=== PATIENT | male | born 1960 | race Caucasian/White ===

== ENCOUNTER 2017-12-18 15:00 | Outpatient (RCR) | payer OTHER, SELFPAY ==
--- NOTE | 2017-10-02 17:49 | HP.PTEVAL_ITS ---
Patient's Visit Information RONNIE RICHARDSON is a 57 year old M referred to Physical Therapy by Minor Llanos DO [email or web address] with a diagnosis of R rCR 09/18/17. Date of Evaluation: 10/02/17 Physical Therapist: JESUS MosesT, OC - Visit Plan Frequency: 3x /Week Duration: 3 Months Plan: PROM, may bring to teach her PROM. May start AAROM 10/18and progress per tolerance. ice as needed. Educate management of condition. - Subjective Subjective: R RCR Sep 18. Happened with years of golf and softball. Flared up in last year. Araceli gave cortisone injection which lasted 3 months and came back. Sent to [facility] who repaired it after x ray and MRI. Also had calcification up front. Pain over last two weeks has been 5/10 intermittently worse with typing at desk. In sling and abd wedge day and night unless sitting on couch. On for another month. 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 Sleep is OK now, first couple nights were rough. Dressing self slowly but gets it done. Dons and doffs sling I. Wants to golf again. Enjoys jetskiing on [place]. wants to swim in water. - Pain R shoulder anterior Pain Intensity (Out of 10): 0 Pain Intensity Range: 0, 6 - Objective R sling don and doff I. incisions have healed well, slight scar tissue, dry, minimal tender. c/s aROM WNL. scap AROM 75% limited R vs. L. elbow and wrist AROM WFL B. PROM L shoulder flexion 85, abd 90, ext rot 20, AROM NT. Transfers and walks I. One incident of muscle spasm with lowering from passive flexion gave sharp pain, otherwise tolerated well. - Goals Goal 1:: ST: PROM 150 flexion adn 60 ext rotation without pain. Goal Time Frame: 2-4 Weeks Goal 2:: AROM full and painfree Goal Time Frame: 6-8 Weeks Goal 3:: LT: Back to golf and reaching [place] for items Goal Time Frame: 8-12 Weeks Goal 4:: ST: sleep withotu interruption at night. Goal Time Frame: 4-6 Weeks Goal 5:: Pain 0-1 /10 at all times.(ST Goal Time Frame: 4-6 Weeks - Rehabilitation Potential Physical Therapy Diagnosis: R RCR 09/18/17 Rehabilitation Potential: Good - Anticipated Interventions Patient/Client Instruction: Educate patient on: Condition, Plan of Care For the Purpose of:: To decrease pain Therapeutic Exercise to Include: Passive ROM Comment: AAROM at 4 weeks. strength around 8 weeks and eventual return to function ex. For the Purpose of:: To decrease pain, To increase ROM Manual Therapy Techniques to Include: Passive ROM For the Purpose of:: To decrease pain Thank you for the opportunity to evaluate your patient. For Medicare and Medicare HMO plans, please review the plan of care and approve it. It will need to be FAXED BACK to us at [phone] for Medicare purposes. Please let me know if there are questions or concerns regarding this plan of care. Physician Signature: Date:
--- NOTE | 2017-10-30 16:00 | HP.PTREVAL_ITS ---
Minor Llanos DO, It has been my pleasure to treat RONNIE RICHARDSON over the last 10 visits for R rCR 09/18/17. Please see the progress note below for an update on the physical therapy plan of care! Subjective: Next Friday is doctor visit. Still in sling but more time out of it. Sore after ex slightly. Home [id number] going well. HEP: pendulum, AROM scap and elbow. Walking up the wall a little bit. Sleping OK as long as he remembers to ice. Work going well at his desk. Objective/Function: AROM flex 100. abd 90. ext rot 45. IR PSIS. PROM 130 flexion 110 abd, 60 ext rot. DoING WELL. Plan Plan: weekly to progress HEP x 4-8 weeks Goals Goal 1:: ST: PROM 150 flexion adn 60 ext rotation without pain. Goal Time Frame: 2-4 Weeks Goal 2:: AROM full and painfree Goal Time Frame: 6-8 Weeks Goal 3:: LT: Back to golf and reaching [place] for items Goal Time Frame: 8-12 Weeks Goal 4:: ST: sleep withotu interruption at night. Goal Time Frame: 4-6 Weeks Goal 5:: Pain 0-1 /10 at all times.(ST Goal Time Frame: 4-6 Weeks Anticipated Interventions Patient/Client Instruction: Educate patient on: Condition, Plan of Care For the Purpose of:: To decrease pain Therapeutic Exercise to Include: Passive ROM Comment: AAROM at 4 weeks. strength around 8 weeks and eventual return to function ex. For the Purpose of:: To decrease pain, To increase ROM Manual Therapy Techniques to Include: Passive ROM For the Purpose of:: To decrease pain Please do not hesitate to contact me at [phone] by phone or Fax: if you have questions or concerns regarding this new plan of care! Sincerely, Isidoro Loja, JESUST, OC
--- NOTE | 2017-12-18 15:24 | HP.PTDCSUM_ITS ---
HP - PT D/C Summary It has been my pleasure to treat RONNIE Mendoza DIES under orders from Minor Llanos DO , for the diagnosis of R rCR 09/18/17 for a total of 15 visit(s). Discharge Date: 12/18/17 Please see the following information for a summary of their discharge status. - Subjective Subjective: Stiff in the am. Pain is not an issue. Sleep is good. HEP going well. strengthening is getting easier. Work is normal. Activities at home are normal outside of lifting and golf. - Pain R shoulder anterior Pain Intensity (Out of 10): 0 - Objective Objective/Function: 0-140 aROM flex and abd R, ext rotation is 75 degrees adn IR is to L4. Tightness present in pectorals. Strength is 4+ in flex/abd and 5/ 5 in rotations and extension and bi and tri. No pain. - Goals Goal 1:: ST: PROM 150 flexion adn 60 ext rotation without pain. Goal Progress: Progressing Goal 2:: AROM full and painfree Goal Progress: Progressing Goal 3:: LT: Back to golf and reaching [place] for items Goal Progress: Progressing Goal 4:: ST: sleep withotu interruption at night. Goal Progress: Goal Met Goal 5:: Pain 0-1 /10 at all times.(ST Goal Progress: Goal Met - Plan Plan: D/C to I program. - D/C Information Discharge Comments: To doctor next week. Doing well overall and will continue via I gym strength adn home stretching. If there are questions or concerns regarding this patient's physical therapy, please feel free to call me at [phone]. Thank you for the referral of this patient. Sincerely, Isidoro Loja, DPT, OC
== END 2017-12-18 19:00 | disposition home or self-care (01) ==
LOC: PT 15:00
PROVIDERS: Family Provider Family Medicine; PCP Family Medicine; Visit Provider Orthopaedic Surgery
DX: Z98.890 Other specified postprocedural states (principal)
CPT/HCPCS: 97110; 97140; 97161; 97530

== ENCOUNTER → 2018-09-02 15:03 | Outpatient (CLI) | payer OTHER, SELFPAY ==
[2017-09-18 10:43] VITALS: BMI 27.0
[2018-09-02 15:07] LABS: Bacteria 0 SEEN /hpf (None Seen); Mucous, Urine 0 SEEN /hpf (<or=2+); Red Blood Cells-Urine 0 SEEN /hpf (0-5); Squamous Epithelial Cells - UA 0 SEEN /hpf (0-5); White Blood Cells 0 SEEN /hpf (0-5)
[2018-09-02 17:31] LABS: Color, Urine Yellow (Yellow); Glucose, Dipstick Normal (Normal); Ketone-Dipstick Negative (Negative); Leukocyte Esterase-Dipstick Negative /ul (Negative); Nitrite-Dipstick Negative (Negative); Occult Blood-Urine Negative /ul (Negative); Protein-Dipstick Negative (Negative); Specific Gravity, Urine 1.015 (1.002-1.030); Urine Bilirubin Dipstick Negative (Negative); Urine Clarity Clear (Clear); Urine Urobilinogen Normal (Normal)
[2018-09-02 17:44] LABS: ALB/GLOB Ratio 1.1 RATIO (0.9-2.4); AST(SGOT) 20 U/L (15-37); Alanine Aminotransfer ALT/SGPT 30 U/L (16-61); Albumin, Serum 3.8 g/dL (3.2-5.0); Alkaline Phosphatase 63 U/L (45-117); Anion Gap 9 (5-15); BUN 16 mg/dL (7-18); BUN/Creat Ratio 17.9 RATIO (10-20); Calcium,Total 9.1 mg/dL (8.5-10.1); Chloride 106 mmol/L (98-107); Creatinine, Serum 0.89 mg/dL (0.70-1.30); EST Glomerular Filtration Rate 93 mL/min (>60); Est Glom Filt Rate - Afr Amer 112 mL/min (>60); Globulin 3.5 g/dL (2.2-4.2); Glucose 87 mg/dL (74-106); PSA,Total - Annual Screen 3.72 ng/mL (0.00-4.00); Protein, Total 7.3 g/dL (6.4-8.2); Sodium Level 140 mmol/L (136-145)
== END ==
PROVIDERS: Family Provider Family Medicine; PCP Family Medicine; Visit Provider Family Medicine
DX: Z00.00 Encounter for general adult medical examination without abnormal findings (principal); E78.5 Hyperlipidemia, unspecified; Z12.5 Encounter for screening for malignant neoplasm of prostate
CPT/HCPCS: 36415; 80053; 81001; 84153; G0103

== ENCOUNTER → 2019-08-05 | Outpatient (CLI) | payer OTHER, SELFPAY ==
[2017-09-18 10:43] VITALS: BMI 27.0
--- NOTE | 2019-08-05 16:19 | RAD_ITS ---
STUDY: X-RAY - RIGHT FOOT CLINICAL: Male, 59 years old. Right foot pain. TECHNIQUE: 3 view(s) of the foot. COMPARISON: None. FINDINGS: Minimal enthesophyte at the Achilles tendon insertion site. Otherwise normal talus, calcaneus, and tarsal bones. Normal visualized subtalar, talonavicular, calcaneocuboid, tarsal and tarsometatarsal articulations. Normal metatarsi. There is mild degenerative arthrosis of the metatarsophalangeal joint of the hallux . Normal tibial and fibular sesamoid bones. Normal interphalangeal joint of the great toe. Normal phalanges of the great toe. Normal second through fifth metatarsophalangeal joints. Mild multilevel narrowing of the interphalangeal joints otherwise normal phalanges of the lesser toes. The soft tissue structures are unremarkable. There is no demonstrated fracture. RAD/Foot min 3 Views IMPRESSION: Mild multilevel degenerative disease as described above with no acute fracture or subluxation. Electronically Signed: Brunilda Terry MD at 2:53 EST , Service support ,
== END | disposition home or self-care (01) ==
LOC: MTRAD 16:18
PROVIDERS: Family Provider Family Medicine; PCP Family Medicine; Referring Provider Family Medicine; Visit Provider Family Medicine
DX: M79.671 Pain in right foot (principal)
CPT/HCPCS: 73630

== ENCOUNTER → 2019-09-06 16:19 | Outpatient (CLI) | payer OTHER, SELFPAY ==
[2017-09-18 10:43] VITALS: BMI 27.0
[2019-09-06 18:34] LABS: PSA,Total - Annual Screen 3.42 ng/mL (0.00-4.00)
== END ==
PROVIDERS: Family Provider Family Medicine; PCP Family Medicine; Visit Provider Family Medicine
DX: Z12.5 Encounter for screening for malignant neoplasm of prostate (principal)
CPT/HCPCS: 36415; 84153; G0103

== ENCOUNTER → 2020-02-29 | Outpatient (CLI) | payer OTHER, SELFPAY ==
[2017-09-18 10:43] VITALS: BMI 27.0
[2020-02-29 18:03] LABS: Erythrocyte Sedimentation Rate 5 mm/hr (0-20)
[2020-02-29 18:08] LABS: CRP < 2.90 mg/L (0.0-3.0); Creatinine, Serum 0.84 mg/dL (0.70-1.30); EST Glomerular Filtration Rate 99 mL/min (>60); Est Glom Filt Rate - Afr Amer 120 mL/min (>60)
== END | disposition home or self-care (01) ==
LOC: MTLAB 14:24
PROVIDERS: PCP Family Medicine; Referring Provider Ophthalmology; Visit Provider Ophthalmology
DX: H46.9 Unspecified optic neuritis (principal)
CPT/HCPCS: 36415; 82565; 85652; 86140

== ENCOUNTER → 2020-03-07 | Outpatient (CLI) | payer OTHER, SELFPAY ==
[2017-09-18 10:43] VITALS: BMI 27.0
--- NOTE | 2020-03-07 10:45 | MRI_ITS ---
STUDY: MRI ORBITS WITH AND WITHOUT CONTRAST REASON FOR EXAM: Male, 60 years old. Optic neuritis LEFT eye, vision loss x 4 weeks TECHNIQUE: Standardized fat and water weighted pulse sequences were obtained in all 3 orthogonal planes, pre-and post contrast administration. IV Yes YES was administered for the contrast portion of the examination. COMPARISON: None. FINDINGS: Normal bilateral globes. Normal bilateral optic nerve sheath complexes and optic nerves. Normal bilateral intraconal and extraconal spaces. Normal bilateral extraocular muscles. Normal optic chiasm and post-chiasmatic tracts. Normal sella turcica, pituitary gland, infundibular stalk, and hypothalamus. Normal bilateral cavernous sinuses. Normal tectal plate and pineal gland. Normal flow voids within the major intracranial circulation suggesting patency by spin echo criteria. Normal size of the ventricles and extra-axial spaces for the patient''s age. There are a limited number of small white matter hyperintensities, distributed throughout the deep white matter tracts of the cerebral hemispheres, nonspecific but most commonly seen with with mild chronic white matter ischemic changes. Normal bilateral basal ganglia. Normal thalami. There is no extra-axial fluid accumulation. Normal midbrain, kai and medulla. Normal cerebellum. Normal basal cisterns. MRI/Brain W/WO Contrast IMPRESSION: Unremarkable orbits. Electronically Signed: Janell Choudhary MD at 12:15 EDT Tel , Service support ,
== END | disposition home or self-care (01) ==
LOC: MRI 10:14
PROVIDERS: PCP Family Medicine; Referring Provider Ophthalmology; Visit Provider Ophthalmology
DX: H46.9 Unspecified optic neuritis (principal)
CPT/HCPCS: 70553; A9575

== ENCOUNTER → 2020-04-25 | Outpatient (CLI) | payer OTHER, SELFPAY ==
--- NOTE | 2020-04-25 12:55 | ECHOD_ITS ---
Reason For Study: CVA Procedure This was a 2D Doppler, Color Flow transthoracic echocardiogram. The study was technically difficult. Exam performed in department. Left Ventricle Normal LV size. Apical false tendon noted. Left ventricular systolic function is normal. The estimated ejection fraction is 60 %. No evidence for diastolic dysfunction. No regional wall motion abnormalities noted. Right Ventricle Normal RV size. Normal systolic function. Atria Normal left atrium. Normal right atrium. No doppler evidence for ASD. Bubble contrast study negative for right to left interatrial shunt. Mitral Valve There is no mitral annular calcification. Anterior leaflet diffuse mitral valve thickening. Trivial mitral valve insufficiency. Tricuspid Valve Normal tricuspid valve. Trivial tricuspid valve insufficiency. Right ventricular systolic pressure estimated to be 30 mmHg. Aortic Valve Trisinus/trileaflet aortic valve. Mild focal aortic valve calcification. Pulmonic Valve The pulmonic valve is not well visualized. Trivial pulmonic valve insufficiency. Great Vessels Normal sized aortic root. Pericardium/Pleural No pericardial effusion. Medication 22 gauge I.V. with prn adaptor inserted into right arm. Performed a rapid injection of agitated mix of 9 cc saline and 1cc air to assess for atrial septal defect. MMode/2D Measurements & Calculations LVIDd: 4.4 cm IVSd: 0.97 cm Ao root diam: 3.2 cm LVIDs: 3.0 cm LVPWd: 1.0 cm RVDd: 3.3 cm FS: 32.9 % LAV(MOD-bp): 51.4 ml LVAd ap4: 34.7 cm2 SV(MOD-sp4): 76.3 ml LAV(MOD-bp) Indexed: 26.9 ml/m2 EDV(MOD-sp4): 117.0 ml LAV(MOD-sp2): 50.1 ml EDV(sp4-el): 122.9 ml LAV(MOD-sp4): 48.4 ml LVAs ap4: 18.0 cm2 ESV(MOD-sp4): 40.7 ml ESV(sp4-el): 41.0 ml EF(MOD-sp4): 65.2 % EF(sp4-el): 66.7 % SV(sp4-el): 82.0 ml LA A4 area: 17.9 cm2 LA dimension(2D): 3.8 cm RA A4 area: 17.3 cm2 Time Measurements MV dec time: 0.21 sec Doppler Measurements & Calculations MV E max chacorta: 97.1 cm/sec Lat Peak E' Chacorta: 13.3 cm/sec Med Peak E' Chacorta: 10.2 cm/sec MV A max chacorta: 58.7 cm/sec E/E' lat: 7.3 E/E' med: 9.5 MV E/A: 1.7 Ao V2 max: 145.0 cm/sec LV V1 max: 132.0 cm/sec PA V2 max: 117.3 cm/sec Ao max P.4 mmHg LV V1 max P.0 mmHg TR max chacorta: 260.4 cm/sec TR max P.1 mmHg Interpretation Summary The study was technically difficult. Left ventricular systolic function is normal. The estimated ejection fraction is 60 %. Apical false tendon noted. Anterior leaflet diffuse mitral valve thickening. Trivial mitral valve insufficiency. Trivial tricuspid valve insufficiency. Mild focal aortic valve calcification. Trivial pulmonic valve insufficiency. Right ventricular systolic pressure estimated to be 30 mmHg. No evidence for diastolic dysfunction. Bubble contrast study negative for right to left interatrial shunt. Ordering Physician: Bang Charles Referring Physician: Bang Charles Performed By: Emily Martinez RDCS
--- NOTE | 2020-04-25 12:56 | CDU_ITS ---
Reason For Study: CVA Rt. Velocities/BP Lt. Velocities/BP Prox CCA 99.5/9.5 cm/sec. Prox CCA 100.3/13.5 cm/sec. Mid CCA 93.0/14.7 cm/sec. Mid CCA 94.8/15.7 cm/sec. Dist CCA 68.2/16.0 cm/sec. Dist CCA 72.8/13.5 cm/sec. Prox ICA 60.7/14.5 cm/sec. Prox ICA 64.0/15.7 cm/sec. Mid ICA 67.4/19.2 cm/sec. Mid ICA 72.9/19.0 cm/sec. Dist ICA 61.7/18.2 cm/sec. Dist ICA 81.7/28.9 cm/sec. Rt. ICA/CCA = .7. Lt. ICA/CCA = .9. Prox ECA 121.7/9.5 cm/sec. Prox ECA 109.7/7.7 cm/sec. Rt. Vert. 27.4/6.7 cm/sec. Lt. Vert. 44.8/9.9 cm/sec. Right Extracranial There is intimal thickening but no significant atherosclerotic plaque noted in the right common carotid artery. There is intimal thickening but no significant atherosclerotic plaque noted in the right internal carotid artery. There is intimal thickening but no significant atherosclerotic plaque noted in the right external carotid artery. Antegrade flow is noted in the right vertebral artery. Left Extracranial There is intimal thickening but no significant atherosclerotic plaque noted in the left common carotid artery. There is homogeneous, smooth atherosclerotic plaque noted in the left internal carotid artery. There is intimal thickening but no significant atherosclerotic plaque noted in the left external carotid artery. Antegrade flow is noted in the left vertebral artery. Procedure Carotid Duplex [id number]. The exam was diagnostic. Exam performed in department. Interpretation Summary No significant atherosclerotic plaque or stenosis noted in the right internal carotid artery. Mild (<50%) stenosis left extracranial internal carotid. Flow within the vertebral arteries is antegrade bilaterally. Ordering Physician: Bang Charles Performed By: Tim Escalera RVT and Student
== END | disposition home or self-care (01) ==
LOC: CVS 12:51
PROVIDERS: PCP Family Medicine; Referring Provider Family Medicine; Visit Provider Family Medicine
DX: I63.9 Cerebral infarction, unspecified (principal)
CPT/HCPCS: 93306; 93880; A4216

== ENCOUNTER → 2020-09-06 08:32 | Outpatient (CLI) | payer OTHER, SELFPAY ==
[2017-09-18 10:43] VITALS: BMI 27.0
[2020-09-06 10:21] LABS: Anion Gap 2 (5-15); BUN 17 mg/dL (7-18); BUN/Creat Ratio 20.6 RATIO (10-20); Calcium,Total 9.6 mg/dL (8.5-10.1); Chloride 108 mmol/L (98-107); Cholesterol 175 mg/dL (200); Creatinine, Serum 0.83 mg/dL (0.70-1.30); EST Glomerular Filtration Rate 101 mL/min (>60); Est Glom Filt Rate - Afr Amer 122 mL/min (>60); Glucose 99 mg/dL (74-106); High Density Lipoprotein 50 mg/dL; PSA,Total - Annual Screen 3.39 ng/mL (0.00-4.00); Potassium 4.6 mmol/L (3.5-5.1); Sodium Level 141 mmol/L (136-145); Triglycerides 111 mg/dL; Very Low Density Lipoprotein 22 mg/dL (5-40)
== END ==
PROVIDERS: PCP Family Medicine; Referring Provider Family Medicine; Visit Provider Family Medicine
DX: E78.5 Hyperlipidemia, unspecified (principal); Z12.5 Encounter for screening for malignant neoplasm of prostate
CPT/HCPCS: 36415; 80048; 80061; 84153; G0103

== ENCOUNTER → 2021-01-10 | Outpatient (CLI) | payer OTHER, SELFPAY | END | disposition home or self-care (01) | PROVIDERS: PCP Family Medicine; Referring Provider Family Medicine; Visit Provider Family Medicine | DX: Z20.822 Contact with and (suspected) exposure to COVID-19 (principal) | CPT/HCPCS: 87635; U0002 ==